=== PATIENT | male | born 1965 | race Caucasian/White ===

== ENCOUNTER 2020-07-29 22:01 | Inpatient (IN) | payer MEDICAID ==
[~2020-07-29] VITALS: Ht 180.3 cm; Wt 99.8 kg
[2020-07-29] MEDS ORDERED: ACETAMINOPHEN 325MG TABLET PO STA (23:31)
[2020-07-29] MEDS ORDERED: CEFTRIAXONE 1 G PREMIX 50 ML IV ONE (23:45)
[2020-07-29] MEDS ORDERED: AZITHROMYCIN 500 MG in DEXT 5% WATER 250 ML IV ONE (23:45)
[2020-07-30 01:03] LABS: HEMATOCRIT. 42.8 % (42.0-52.0); HEMOGLOBIN. 14.4 g/dL (14.0-18.0); MEAN CORPUSCULAR HEMOGLOBIN 30.6 pg (28.0-32.0); MEAN PLATELET VOLUME 9.4 fl (7.4-10.4); RED CELL DISTRIBUTION WIDTH 14.1 % (11.6-14.6)
[2020-07-30 01:08] LABS: CHLORIDE 103 mEq/L (98-107)
[2020-07-30 02:56] LABS: PLATELET ESTIMATE NORMAL
[2020-07-30 02:59] LABS: PLATELET 179 x1000/uL (130-400)
[2020-07-30 03:27] LABS: CLARITY URINE CLOUDY (CLEAR); COLOR URINE DARK YELLOW (YELLOW); KETONES URINE 3+ (NEGATIVE); LEUKOCYTE ESTERASE URINE TRACE (NEGATIVE); NITRITE URINE NEGATIVE (NEGATIVE); OCCULT BLOOD URINE NEGATIVE (NEGATIVE); PROTEIN URINE 3+ (NEGATIVE); SPECIFIC GRAVITY URINE 1.038 (1.005-1.030)
[2020-07-30] MEDS ORDERED: BENZONATATE 100MG CAPSULE PO PRN (09:00)
[2020-07-30] MEDS ORDERED: ONDANSETRON HCL 4MG/2ML INJ IV PRN (09:00)
[2020-07-30] MEDS ORDERED: CEFTRIAXONE 1 G PREMIX 50 ML IV SCH (10:00)
[2020-07-30] MEDS ORDERED: ALBUTEROL 6.7GM HFA INHALER ORI PRN (10:00)
[2020-07-30] MEDS ORDERED: GUAIFENESIN-DM 200MG-20MG/10ML UDC PO PRN (16:00)
[2020-07-30 16:21] LABS: BG BASE EXCESS 4.2 mmol/L (-2.0-2.0); BG CARBOXYHEMOGLOBIN 0.2 % (0.5-1.5); BG DEOXYHEMOGLOBIN 15.2 % (0.0-5.0); BG FRACTION INSPIRED OXYGEN 100; BG METHEMOGLOBIN 0.3 % (0.0-1.5); BG OXYGEN SATURATION 84.7 % (92.0-98.5); BG OXYHEMOGLOBIN 84.3 % (94.0-97.0); BG PCO2 38.9 mmHg (35.0-45.0); BG PH 7.475 (7.350-7.450); BG PO2 43.4 mmHg (75.0-100.0); BG TOTAL HEMOGLOBIN 13.9 g/dL (12.0-18.0); BG VENT MODE MASK - NRB
[2020-07-30] MEDS: ENOXAPARIN 30MG/0.3ML SYR SUBCUT SCH ×2 (21:00→21:12)
[2020-07-30] MEDS: DEXAMETHASONE 10 MG/ML VIAL IV SCH (21:12)
[2020-07-30 22:30] VITALS: BP 122/79
[2020-07-30] MEDS: AZITHROMYCIN 250 MG TABLET PO SCH (23:56)
[2020-07-31] VITALS (7 sets, daily range): BP systolic 109–135; BP diastolic 63–87
[2020-07-31] MEDS ORDERED: AMLO1CAP6 MT (00:15)
[2020-07-31] MEDS ORDERED: ASPI-1497 PO (00:15)
[2020-07-31] MEDS: ACETAMINOPHEN 325MG TABLET PO PRN (00:35)
[2020-07-31 07:20] LABS: HEMATOCRIT. 39.8 % (42.0-52.0); HEMOGLOBIN. 13.5 g/dL (14.0-18.0); MEAN CORPUSCULAR HEMOGLOBIN 30.9 pg (28.0-32.0); MEAN CORPUSCULAR VOLUME 91.3 fL (80.0-94.0); MEAN PLATELET VOLUME 9.4 fl (7.4-10.4); PLATELET 186 x1000/uL (130-400); RED BLOOD CELL COUNT 4.36 mill/uL (4.7-6.1); RED CELL DISTRIBUTION WIDTH 13.8 % (11.6-14.6)
[2020-07-31 07:37] LABS: CHLORIDE 107 mEq/L (98-107)
[2020-07-31] MEDS: DEXAMETHASONE 10 MG/ML VIAL IV SCH (10:18)
[2020-07-31] MEDS: AZITHROMYCIN 250 MG TABLET PO SCH (10:18)
[2020-07-31] MEDS: ENOXAPARIN 30MG/0.3ML SYR SUBCUT SCH ×2 (10:19→20:19)
[2020-07-31] MEDS: CEFTRIAXONE 1,000 MG in DEXTROSE 5% WATER 50 ML IV SCH (11:08)
[2020-07-31 21:02] LABS: PLATELET ESTIMATE NORMAL
[2020-08-01] VITALS (8 sets, daily range): BP systolic 112–137; BP diastolic 66–83
[2020-08-01 07:41] LABS: HEMOGLOBIN. 13.6 g/dL (14.0-18.0); MEAN CORPUSCULAR HEMOGLOBIN 30.9 pg (28.0-32.0); MEAN PLATELET VOLUME 9.3 fl (7.4-10.4); PLATELET 218 x1000/uL (130-400); RED CELL DISTRIBUTION WIDTH 14.3 % (11.6-14.6)
[2020-08-01 07:53] LABS: CHLORIDE 111 mEq/L (98-107)
[2020-08-01] MEDS: DEXAMETHASONE 10 MG/ML VIAL IV SCH (09:21)
[2020-08-01] MEDS: AZITHROMYCIN 250 MG TABLET PO SCH (09:21)
[2020-08-01] MEDS: CEFTRIAXONE 1,000 MG in DEXTROSE 5% WATER 50 ML IV SCH (11:08)
[2020-08-01] MEDS: ENOXAPARIN 30MG/0.3ML SYR SUBCUT SCH ×2 (11:09→20:05)
[2020-08-01] MEDS: SODIUM CHLORIDE 0.45% 1,000 ML IV SCH (18:03)
[2020-08-01 23:24] LABS: PLATELET ESTIMATE NORMAL
[2020-08-02 00:05] VITALS: BP 132/69
[2020-08-02] MEDS: SODIUM CHLORIDE 0.45% 1,000 ML IV SCH ×2 (02:26→17:58)
[2020-08-02 04:00] VITALS: BP 139/88
[2020-08-02 07:21] LABS: HEMATOCRIT. 35.6 % (42.0-52.0); HEMOGLOBIN. 12.1 g/dL (14.0-18.0); MEAN CORPUSCULAR HEMOGLOBIN 30.5 pg (28.0-32.0); MEAN CORPUSCULAR VOLUME 90.2 fL (80.0-94.0); MEAN PLATELET VOLUME 9.1 fl (7.4-10.4); PLATELET 242 x1000/uL (130-400); RED BLOOD CELL COUNT 3.95 mill/uL (4.7-6.1); RED CELL DISTRIBUTION WIDTH 13.9 % (11.6-14.6)
[2020-08-02 07:26] LABS: CHLORIDE 110 mEq/L (98-107)
[2020-08-02 08:00] VITALS: BP 119/72
[2020-08-02] MEDS: DEXAMETHASONE 10 MG/ML VIAL IV SCH (08:21)
[2020-08-02] MEDS: ENOXAPARIN 30MG/0.3ML SYR SUBCUT SCH ×2 (08:21→21:17)
[2020-08-02] MEDS: AZITHROMYCIN 250 MG TABLET PO SCH (08:25)
[2020-08-02] MEDS: CEFTRIAXONE 1,000 MG in DEXTROSE 5% WATER 50 ML IV SCH (11:11)
[2020-08-02 12:00] VITALS: BP 126/64
[2020-08-02 15:20] LABS: PLATELET ESTIMATE NORMAL
[2020-08-02 16:00] VITALS: BP 116/77
[2020-08-02 20:00] VITALS: BP 135/81
[2020-08-03] MEDS: SODIUM CHLORIDE 0.45% 1,000 ML IV SCH ×2 (03:58→21:58)
[2020-08-03 08:00] VITALS: BP 126/73
[2020-08-03] MEDS: ENOXAPARIN 30MG/0.3ML SYR SUBCUT SCH ×2 (08:59→21:58)
[2020-08-03] MEDS: DEXAMETHASONE 10 MG/ML VIAL IV SCH (08:59)
[2020-08-03] MEDS: ACETAMINOPHEN 325MG TABLET PO PRN (09:07)
[2020-08-03] MEDS: CEFTRIAXONE 1,000 MG in DEXTROSE 5% WATER 50 ML IV SCH (10:20)
[2020-08-03 11:51] LABS: BG BASE EXCESS -0.3 mmol/L (-2.0-2.0); BG CARBOXYHEMOGLOBIN 0.8 % (0.5-1.5); BG DEOXYHEMOGLOBIN 3.2 % (0.0-5.0); BG FRACTION INSPIRED OXYGEN 100; BG HCO3 ACT 22.6 mmol/L (22.0-26.0); BG METHEMOGLOBIN 0.2 % (0.0-1.5); BG OXYGEN SATURATION 96.8 % (92.0-98.5); BG OXYHEMOGLOBIN 95.8 % (94.0-97.0); BG PH 7.467 (7.350-7.450); BG PO2 84.2 mmHg (75.0-100.0); BG SAMPLE SITE RIGHT RADIAL; BG TOTAL HEMOGLOBIN 13.8 g/dL (12.0-18.0); BG TOTAL RESPIRATORY RATE 35 b/min; BG VENT MODE MASK - BIPAP
[2020-08-03 12:00] VITALS: BP 123/74
[2020-08-03 16:00] VITALS: BP 136/73
[2020-08-03 20:00] VITALS: BP 129/71
[2020-08-04] VITALS: BP 113/80
[2020-08-04 04:30] VITALS: BP 141/79
[2020-08-04 08:00] VITALS: BP 131/65
[2020-08-04] MEDS: DEXAMETHASONE 10 MG/ML VIAL IV SCH (09:45)
[2020-08-04] MEDS: ENOXAPARIN 30MG/0.3ML SYR SUBCUT SCH ×2 (09:45→21:19)
[2020-08-04] MEDS: SODIUM CHLORIDE 0.45% 1,000 ML IV SCH ×2 (09:46→21:21)
[2020-08-04] MEDS: ACETAMINOPHEN 325MG TABLET PO PRN (10:10)
[2020-08-04] MEDS: CEFTRIAXONE 1,000 MG in DEXTROSE 5% WATER 50 ML IV SCH (11:36)
[2020-08-04 12:00] VITALS: BP 116/69
[2020-08-04] MEDS: FAMOTIDINE 20MG/2ML VIAL IV SCH (15:15)
[2020-08-04 16:00] VITALS: BP 116/65
[2020-08-04 20:33] VITALS: BP 116/61
[2020-08-04 21:13] LABS: CHLORIDE 107 mEq/L (98-107)
[2020-08-05 00:22] VITALS: BP 134/78
[2020-08-05] MEDS: ACETAMINOPHEN 325MG TABLET PO PRN ×2 (00:41→09:43)
[2020-08-05 04:00] VITALS: BP 115/64
[2020-08-05 08:00] VITALS: BP 128/74
[2020-08-05] MEDS: FAMOTIDINE 20MG/2ML VIAL IV SCH (09:43)
[2020-08-05] MEDS: DEXAMETHASONE 10 MG/ML VIAL IV SCH (09:43)
[2020-08-05 12:00] VITALS: BP 122/67
[2020-08-05] MEDS: CEFTRIAXONE 1,000 MG in DEXTROSE 5% WATER 50 ML IV SCH (12:20)
[2020-08-05] MEDS: ENOXAPARIN 30MG/0.3ML SYR SUBCUT SCH ×2 (12:20→20:11)
[2020-08-05] MEDS: SODIUM CHLORIDE 0.45% 1,000 ML IV SCH ×2 (12:20→23:12)
[2020-08-05 16:00] VITALS: BP 133/75
[2020-08-05 18:02] LABS: CLARITY URINE CLEAR (CLEAR); COLOR URINE YELLOW (YELLOW); KETONES URINE TRACE (NEGATIVE); LEUKOCYTE ESTERASE URINE NEGATIVE (NEGATIVE); NITRITE URINE NEGATIVE (NEGATIVE); OCCULT BLOOD URINE NEGATIVE (NEGATIVE); PH URINE 5.5 (4.5-8.0); PROTEIN URINE 1+ (NEGATIVE); SPECIFIC GRAVITY URINE 1.029 (1.005-1.030); UROBILINOGEN URINE 0.2 E.U./dL (0.2-1.0)
[2020-08-05 19:18] LABS: HEMATOCRIT. 40.6 % (42.0-52.0); HEMOGLOBIN. 13.3 g/dL (14.0-18.0); MEAN CORPUSCULAR HEMOGLOBIN 30.3 pg (28.0-32.0); MEAN CORPUSCULAR VOLUME 92.2 fL (80.0-94.0); MEAN PLATELET VOLUME 9.2 fl (7.4-10.4); PLATELET 281 x1000/uL (130-400); RED BLOOD CELL COUNT 4.41 mill/uL (4.7-6.1); RED CELL DISTRIBUTION WIDTH 14.4 % (11.6-14.6)
[2020-08-05 20:00] VITALS: BP 117/61
[2020-08-05 20:40] LABS: PLATELET ESTIMATE NORMAL
[2020-08-06] VITALS (48 sets, daily range): BP systolic 64–190; BP diastolic 24–100
[2020-08-06] MEDS ORDERED: FENTANYL CITRATE/PF 1,000 MCG in SODIUM CHLORIDE 0.9% 80 ML IV PRN (08:30)
[2020-08-06] MEDS ORDERED: LIDOCAINE HCL 1% 20ML VIAL (Pyxis) INJ ONE (09:54)
[2020-08-06] MEDS ORDERED: MIDAZOLAM HCL 100 MG in DEXT 5% WATER 80 ML IV PRN (10:00)
[2020-08-06] MEDS: PROPOFOL 10MG/ML 100ML 100 ML IV PRN ×2 (10:17→17:57)
[2020-08-06] MEDS: MIDAZOLAM HCL 100 MG in DEXT 5% WATER 80 ML IV PRN ×2 (11:08→17:58)
[2020-08-06] MEDS ORDERED: NOREPINEPHRINE 8MG/250ML PMX 250 ML IV PRN (11:30)
[2020-08-06] MEDS: SODIUM CHLORIDE 0.45% 1,000 ML IV SCH ×2 (11:36→21:09)
[2020-08-06] MEDS ORDERED: NOREPINEPHRINE 8 MG in DEXTROSE 5% WATER 250 ML IV PRN (12:00)
[2020-08-06] MEDS: FENTANYL CITRATE 2,500 MCG in SODIUM CHLORIDE 0.9% 200 ML IV PRN (15:48)
[2020-08-06] MEDS: DEXAMETHASONE 10 MG/ML VIAL IV SCH (15:53)
[2020-08-06] MEDS: FAMOTIDINE 20MG/2ML VIAL IV SCH (15:53)
[2020-08-06] MEDS: ENOXAPARIN 30MG/0.3ML SYR SUBCUT SCH ×2 (15:55→20:05)
[2020-08-06 16:37] LABS: BG BASE EXCESS -1.2 mmol/L (-2.0-2.0); BG CARBOXYHEMOGLOBIN 0.5 % (0.5-1.5); BG DEOXYHEMOGLOBIN 36.4 % (0.0-5.0); BG FRACTION INSPIRED OXYGEN 100; BG HCO3 ACT 25.8 mmol/L (22.0-26.0); BG METHEMOGLOBIN 0.2 % (0.0-1.5); BG OXYGEN SATURATION 63.3 % (92.0-98.5); BG OXYHEMOGLOBIN 62.9 % (94.0-97.0); BG PCO2 52.8 mmHg (35.0-45.0); BG PH 7.307 (7.350-7.450); BG PO2 36.6 mmHg (75.0-100.0); BG SAMPLE SITE RIGHT RADIAL; BG TOTAL HEMOGLOBIN 13.5 g/dL (12.0-18.0); BG VENT MODE VENT - AC
[2020-08-06] MEDS: ACETAMINOPHEN 325MG TABLET PO PRN (20:45)
[2020-08-06] MEDS: PHENYLEPHRINE 100 MG in DEXT 5% WATER 240 ML IV PRN (22:36)
[2020-08-07] VITALS (79 sets, daily range): BP systolic 92–149; BP diastolic 45–88
[2020-08-07] MEDS: PROPOFOL 10MG/ML 100ML 100 ML IV PRN ×6 (00:51→23:15)
[2020-08-07] MEDS: FENTANYL CITRATE 2,500 MCG in SODIUM CHLORIDE 0.9% 200 ML IV PRN ×4 (00:51→23:16)
[2020-08-07] MEDS: MIDAZOLAM HCL 100 MG in DEXT 5% WATER 80 ML IV PRN (00:53)
[2020-08-07 06:05] LABS: HEMATOCRIT. 40.9 % (42.0-52.0); MEAN CORPUSCULAR HEMOGLOBIN 29.7 pg (28.0-32.0); MEAN CORPUSCULAR VOLUME 93.8 fL (80.0-94.0); MEAN PLATELET VOLUME 9.2 fl (7.4-10.4); PLATELET 198 x1000/uL (130-400); RED BLOOD CELL COUNT 4.36 mill/uL (4.7-6.1); RED CELL DISTRIBUTION WIDTH 14.9 % (11.6-14.6)
[2020-08-07 06:07] LABS: CHLORIDE 103 mEq/L (98-107)
[2020-08-07 07:51] LABS: C REACTIVE PROTEIN QUANT > 190.0 mg/L (0.0-3.0)
[2020-08-07] MEDS: MIDAZOLAM HCL 100 MG in SODIUM CHLORIDE 0.9% 80 ML IV PRN ×3 (08:51→23:17)
[2020-08-07 08:59] LABS: BG BASE EXCESS -10.6 mmol/L (-2.0-2.0); BG CARBOXYHEMOGLOBIN 0.2 % (0.5-1.5); BG DEOXYHEMOGLOBIN 3.5 % (0.0-5.0); BG FRACTION INSPIRED OXYGEN 100; BG HCO3 ACT 22.3 mmol/L (22.0-26.0); BG METHEMOGLOBIN 0.3 % (0.0-1.5); BG OXYGEN SATURATION 96.5 % (92.0-98.5); BG PCO2 91.3 mmHg (35.0-45.0); BG PH 7.006 (7.350-7.450); BG SAMPLE SITE RIGHT RADIAL; BG TOTAL HEMOGLOBIN 13.3 g/dL (12.0-18.0); BG VENT MODE VENT - AC
[2020-08-07] MEDS: DEXAMETHASONE 10 MG/ML VIAL IV SCH (09:22)
[2020-08-07] MEDS: FAMOTIDINE 20MG/2ML VIAL IV SCH (09:22)
[2020-08-07] MEDS: ENOXAPARIN 30MG/0.3ML SYR SUBCUT SCH (09:22)
[2020-08-07] MEDS: PHENYLEPHRINE 100 MG in DEXT 5% WATER 240 ML IV PRN (09:22)
[2020-08-07] MEDS: SODIUM CHLORIDE 0.45% 1,000 ML IV SCH (09:34)
[2020-08-07] MEDS: INSULIN REGULAR (HUMULIN R) 300UNITS/3ML VIAL IV NR ×2 (09:44→14:45)
[2020-08-07] MEDS ORDERED: DEXTROSE 50% WATER 50ML SYRINGE IV NR ×2 (09:45→14:30)
[2020-08-07] MEDS ORDERED: CALCIUM CHLORIDE 1,000 MG in DEXT 5% WATER 90 ML IV SCH (11:00)
[2020-08-07] MEDS: PIPERACILLIN/TAZOBACTAM 3.375 G in DEXT 5% WATER 100 ML IV SCH ×3 (12:55→23:07)
[2020-08-07] MEDS ORDERED: CALCIUM GLUCONATE 1,000 MG in DEXT 5% WATER 90 ML IV ONE (14:30)
[2020-08-07] MEDS ORDERED: SODIUM POLYSTYRENE SULFONATE 15 G/60 ML BOT PO NR (14:30)
[2020-08-07] MEDS ORDERED: SODIUM BICARBONATE 8.4% 1 MEQ/ML 50ML SYR IV NR (14:30)
[2020-08-07] MEDS ORDERED: INSULIN REGULAR (HUMULIN R) 300UNITS/3ML VIAL IV NR (14:30)
[2020-08-07] MEDS ORDERED: CALCIUM GLUCONATE 1GM PREMIX 50 ML IV NR (15:00)
[2020-08-07 15:25] LABS: BG BASE EXCESS -2.2 mmol/L (-2.0-2.0); BG CARBOXYHEMOGLOBIN 0.4 % (0.5-1.5); BG DEOXYHEMOGLOBIN 11.9 % (0.0-5.0); BG HCO3 ACT 24.9 mmol/L (22.0-26.0); BG METHEMOGLOBIN 0.2 % (0.0-1.5); BG OXYHEMOGLOBIN 87.5 % (94.0-97.0); BG PCO2 55.9 mmHg (35.0-45.0); BG PH 7.266 (7.350-7.450); BG SAMPLE SITE RIGHT RADIAL; BG TOTAL HEMOGLOBIN 8.1 g/dL (12.0-18.0); BG VENT MODE VENT- PRVC
[2020-08-07 15:34] LABS: PLATELET ESTIMATE NORMAL
[2020-08-07] MEDS ORDERED: SODIUM POLYSTYRENE SULFONATE 15 G/60 ML BOT PO SCH (18:00)
[2020-08-07] MEDS ORDERED: IPRATROPIUM/ALBUTEROL 0.5-3(2.5)MG/3ML NEB HHN PRN (19:00)
[2020-08-07 20:16] LABS: BG BASE EXCESS -10.2 mmol/L (-2.0-2.0); BG CARBOXYHEMOGLOBIN 0.3 % (0.5-1.5); BG DEOXYHEMOGLOBIN 1.1 % (0.0-5.0); BG FRACTION INSPIRED OXYGEN 100; BG HCO3 ACT 22.3 mmol/L (22.0-26.0); BG METHEMOGLOBIN 0.6 % (0.0-1.5); BG OXYGEN SATURATION 98.9 % (92.0-98.5); BG PCO2 86.7 mmHg (35.0-45.0); BG PH 7.029 (7.350-7.450); BG PO2 176.4 mmHg (75.0-100.0); BG SAMPLE SITE RIGHT RADIAL; BG TOTAL HEMOGLOBIN 13.7 g/dL (12.0-18.0); BG VENT MODE VENT - AC
[2020-08-07] MEDS ORDERED: PHENYLEPHRINE 200 MG in DEXT 5% WATER 480 ML IV PRN (20:18)
[2020-08-07] MEDS: IPRATROPIUM/ALBUTEROL 0.5-3(2.5)MG/3ML NEB HHN SCH (20:43)
[2020-08-07] MEDS: SODIUM POLYSTYRENE SULFONATE 15 G/60 ML BOT PO SCH (21:14)
[2020-08-08] VITALS (95 sets, daily range): BP systolic 72–153; BP diastolic 43–96
[2020-08-08] MEDS: IPRATROPIUM/ALBUTEROL 0.5-3(2.5)MG/3ML NEB HHN SCH ×6 (00:13→20:43)
[2020-08-08] MEDS: PROPOFOL 10MG/ML 100ML 100 ML IV PRN ×6 (04:14→22:26)
[2020-08-08] MEDS: SODIUM POLYSTYRENE SULFONATE 15 G/60 ML BOT PO SCH ×2 (04:41→11:04)
[2020-08-08] MEDS: SODIUM CHLORIDE 0.45% 1,000 ML IV SCH ×2 (05:39→21:17)
[2020-08-08] MEDS: PIPERACILLIN/TAZOBACTAM 3.375 G in DEXT 5% WATER 100 ML IV SCH ×2 (05:39→12:34)
[2020-08-08 06:02] LABS: HEMATOCRIT. 34.8 % (42.0-52.0); HEMOGLOBIN. 11.3 g/dL (14.0-18.0); MEAN CORPUSCULAR HEMOGLOBIN 30.5 pg (28.0-32.0); MEAN CORPUSCULAR VOLUME 93.9 fL (80.0-94.0); MEAN PLATELET VOLUME 10.2 fl (7.4-10.4); PLATELET 140 x1000/uL (130-400); RED BLOOD CELL COUNT 3.71 mill/uL (4.7-6.1); RED CELL DISTRIBUTION WIDTH 14.5 % (11.6-14.6)
[2020-08-08] MEDS: FENTANYL CITRATE 2,500 MCG in SODIUM CHLORIDE 0.9% 200 ML IV PRN ×3 (06:54→17:52)
[2020-08-08] MEDS: MIDAZOLAM HCL 100 MG in DEXT 5% WATER 80 ML IV PRN ×3 (06:57→20:42)
[2020-08-08] MEDS ORDERED: BISACODYL 10MG SUPP PR SCH (08:45)
[2020-08-08] MEDS ORDERED: ENOXAPARIN 40MG/0.4ML SYR SUBCUT SCH (09:00)
[2020-08-08 09:50] LABS: CHLORIDE 101 mEq/L (98-107)
[2020-08-08 10:11] LABS: INR 1.2; PROTHROMBIN TIME 12.7 sec (9.6-11.0)
[2020-08-08] MEDS ORDERED: DEXTROSE 50% WATER 50ML SYRINGE IV PRN (10:45)
[2020-08-08 10:49] LABS: PHOSPHORUS 9.3 mg/dL (2.5-4.9)
[2020-08-08] MEDS ORDERED: CALCIUM GLUCONATE 1,000 MG in DEXT 5% WATER 90 ML IV SCH (11:00)
[2020-08-08] MEDS ORDERED: SODIUM BICARBONATE 8.4% 1 MEQ/ML 50ML SYR IV SCH (11:00)
[2020-08-08] MEDS ORDERED: INSULIN REGULAR (HUMULIN R) 300UNITS/3ML VIAL IV SCH (11:00)
[2020-08-08] MEDS ORDERED: DEXTROSE 50% WATER 50ML SYRINGE IV SCH (11:00)
[2020-08-08] MEDS: DEXAMETHASONE 10 MG/ML VIAL IV SCH (11:03)
[2020-08-08] MEDS: FAMOTIDINE 20MG/2ML VIAL IV SCH (11:03)
[2020-08-08] MEDS ORDERED: LIDOCAINE HCL 1% 20ML VIAL (Pyxis) INJ ONE (11:23)
[2020-08-08] MEDS: BLOOD SUGAR DIAGNOSTIC STRIP TEST SCH ×3 (11:30→23:16)
[2020-08-08] MEDS ORDERED: CALCIUM GLUCONATE 1GM PREMIX 50 ML IV NR (13:00)
[2020-08-08 13:35] LABS: PLATELET ESTIMATE NORMAL
[2020-08-08] MEDS: INSULIN LISPRO 100 UNITS/ML SUBCUT SCH ×3 (13:45→23:16)
[2020-08-08 15:00] LABS: BG BASE EXCESS -11.4 mmol/L (-2.0-2.0); BG CARBOXYHEMOGLOBIN 0.3 % (0.5-1.5); BG DEOXYHEMOGLOBIN 3.2 % (0.0-5.0); BG FRACTION INSPIRED OXYGEN 100; BG HCO3 ACT 16.2 mmol/L (22.0-26.0); BG METHEMOGLOBIN 0.3 % (0.0-1.5); BG OXYGEN SATURATION 96.8 % (92.0-98.5); BG OXYHEMOGLOBIN 96.2 % (94.0-97.0); BG PCO2 43.2 mmHg (35.0-45.0); BG PH 7.192 (7.350-7.450); BG PO2 100.8 mmHg (75.0-100.0); BG SAMPLE SITE LEFT RADIAL; BG TOTAL HEMOGLOBIN 11.3 g/dL (12.0-18.0); BG TOTAL RESPIRATORY RATE 40 b/min; BG VENT MODE VENT - AC
[2020-08-08] MEDS ORDERED: SODIUM BICARBONATE 8.4% 1 MEQ/ML 50ML SYR IV NR (15:35)
[2020-08-08] MEDS: PIPERACILLIN/TAZOBACTAM 2.25 G in DEXTROSE 5% WATER 50 ML IV SCH ×2 (17:59→23:16)
[2020-08-09] VITALS (91 sets, daily range): BP systolic 77–152; BP diastolic 38–90
[2020-08-09] MEDS: IPRATROPIUM/ALBUTEROL 0.5-3(2.5)MG/3ML NEB HHN SCH ×6 (01:33→20:41)
[2020-08-09] MEDS: FENTANYL CITRATE 2,500 MCG in SODIUM CHLORIDE 0.9% 200 ML IV PRN ×2 (02:04→13:27)
[2020-08-09] MEDS: PIPERACILLIN/TAZOBACTAM 2.25 G in DEXTROSE 5% WATER 50 ML IV SCH ×4 (05:09→23:43)
[2020-08-09] MEDS: INSULIN LISPRO 100 UNITS/ML SUBCUT SCH ×3 (05:09→18:21)
[2020-08-09] MEDS: BLOOD SUGAR DIAGNOSTIC STRIP TEST SCH ×3 (05:09→17:54)
[2020-08-09] MEDS: PROPOFOL 10MG/ML 100ML 100 ML IV PRN (05:11)
[2020-08-09] MEDS: MIDAZOLAM HCL 100 MG in DEXT 5% WATER 80 ML IV PRN ×2 (05:12→16:12)
[2020-08-09 06:12] LABS: CHLORIDE 99 mEq/L (98-107)
[2020-08-09 06:15] LABS: INR 1.1; PARTIAL THROMBOPLASTIN TIME 26.7 sec (23.4-31.0); PROTHROMBIN TIME 11.8 sec (9.6-11.0)
[2020-08-09 06:24] LABS: HEMATOCRIT. 31.4 % (42.0-52.0); HEMOGLOBIN. 10.2 g/dL (14.0-18.0); MEAN CORPUSCULAR HEMOGLOBIN 30.1 pg (28.0-32.0); MEAN CORPUSCULAR VOLUME 93.1 fL (80.0-94.0); MEAN PLATELET VOLUME 9.3 fl (7.4-10.4); PLATELET 204 x1000/uL (130-400); RED BLOOD CELL COUNT 3.38 mill/uL (4.7-6.1); RED CELL DISTRIBUTION WIDTH 14.8 % (11.6-14.6)
[2020-08-09] MEDS ORDERED: LIDOCAINE HCL 1% 20ML VIAL (Pyxis) INJ ONE (08:14)
[2020-08-09] MEDS ORDERED: ENOXAPARIN 30MG/0.3ML SYR SUBCUT SCH (09:00)
[2020-08-09] MEDS: DEXAMETHASONE 10 MG/ML VIAL IV SCH (09:05)
[2020-08-09] MEDS: FAMOTIDINE 20MG/2ML VIAL IV SCH (09:05)
[2020-08-09 10:59] LABS: NUCLEATED RED BLOOD CELLS 2 /100 WBC; PLATELET ESTIMATE NORMAL
[2020-08-09] MEDS: SODIUM CHLORIDE 0.45% 1,000 ML IV SCH (12:22)
[2020-08-09] MEDS ORDERED: ALTEPLASE 2MG/VIAL ITC SCH (13:00)
[2020-08-09] MEDS ORDERED: PHENYLEPHRINE 100 MG in DEXT 5% WATER 250 ML IV PRN (14:00)
[2020-08-09] MEDS ORDERED: SODIUM POLYSTYRENE SULFONATE 15 G/60 ML BOT PO SCH ×2 (14:00)
[2020-08-09 20:32] LABS: BG BASE EXCESS -10.7 mmol/L (-2.0-2.0); BG CARBOXYHEMOGLOBIN 0.3 % (0.5-1.5); BG DEOXYHEMOGLOBIN 6.1 % (0.0-5.0); BG FRACTION INSPIRED OXYGEN 100; BG HCO3 ACT 16.8 mmol/L (22.0-26.0); BG METHEMOGLOBIN 0.2 % (0.0-1.5); BG OXYGEN SATURATION 93.9 % (92.0-98.5); BG OXYHEMOGLOBIN 93.4 % (94.0-97.0); BG PO2 82.4 mmHg (75.0-100.0); BG SAMPLE SITE LEFT RADIAL; BG TOTAL HEMOGLOBIN 10.8 g/dL (12.0-18.0); BG VENT MODE VENT - AC
[2020-08-09] MEDS ORDERED: PROPOFOL 10MG/ML 100ML 100 ML IV PRN (21:45)
[2020-08-10] VITALS (94 sets, daily range): BP systolic 89–153; BP diastolic 46–87
[2020-08-10] MEDS: BLOOD SUGAR DIAGNOSTIC STRIP TEST SCH ×4 (00:22→17:31)
[2020-08-10] MEDS: MIDAZOLAM HCL 100 MG in DEXT 5% WATER 80 ML IV PRN ×4 (00:42→19:53)
[2020-08-10] MEDS: IPRATROPIUM/ALBUTEROL 0.5-3(2.5)MG/3ML NEB HHN SCH ×6 (01:04→22:04)
[2020-08-10] MEDS: FENTANYL CITRATE 2,500 MCG in SODIUM CHLORIDE 0.9% 200 ML IV PRN ×2 (04:11→13:47)
[2020-08-10 04:41] LABS: HEMATOCRIT. 30.7 % (42.0-52.0); MEAN CORPUSCULAR HEMOGLOBIN 29.5 pg (28.0-32.0); MEAN CORPUSCULAR VOLUME 90.3 fL (80.0-94.0); MEAN PLATELET VOLUME 8.6 fl (7.4-10.4); PLATELET 221 x1000/uL (130-400); RED CELL DISTRIBUTION WIDTH 14.5 % (11.6-14.6)
[2020-08-10] MEDS: PIPERACILLIN/TAZOBACTAM 2.25 G in DEXTROSE 5% WATER 50 ML IV SCH ×4 (05:02→23:48)
[2020-08-10] MEDS: INSULIN LISPRO 100 UNITS/ML SUBCUT SCH ×4 (05:13→17:31)
[2020-08-10] MEDS ORDERED: LIDOCAINE HCL 1% 20ML VIAL (Pyxis) INJ ONE (08:46)
[2020-08-10 09:16] LABS: BG BASE EXCESS -5.6 mmol/L (-2.0-2.0); BG CARBOXYHEMOGLOBIN 0.3 % (0.5-1.5); BG DEOXYHEMOGLOBIN 3.1 % (0.0-5.0); BG FRACTION INSPIRED OXYGEN 100; BG HCO3 ACT 21.3 mmol/L (22.0-26.0); BG METHEMOGLOBIN 0.2 % (0.0-1.5); BG OXYGEN SATURATION 96.9 % (92.0-98.5); BG OXYHEMOGLOBIN 96.4 % (94.0-97.0); BG PCO2 48.3 mmHg (35.0-45.0); BG PH 7.263 (7.350-7.450); BG PO2 108.7 mmHg (75.0-100.0); BG VENT MODE VENT - APRV
[2020-08-10] MEDS: FAMOTIDINE 20MG/2ML VIAL IV SCH (09:32)
[2020-08-10] MEDS: ENOXAPARIN 40MG/0.4ML SYR SUBCUT SCH (09:32)
[2020-08-10] MEDS: METOCLOPRAMIDE HCL 10MG/2ML VIAL IV SCH ×2 (13:46→17:49)
[2020-08-10 15:46] LABS: NUCLEATED RED BLOOD CELLS 1 /100 WBC; PLATELET ESTIMATE NORMAL
[2020-08-10] MEDS: ACETAMINOPHEN 650MG/20.3ML UDC PO PRN (21:04)
[2020-08-11] VITALS (94 sets, daily range): BP systolic 71–146; BP diastolic 45–100
[2020-08-11] MEDS: METOCLOPRAMIDE HCL 10MG/2ML VIAL IV SCH ×5 (00:11→23:50)
[2020-08-11] MEDS: BLOOD SUGAR DIAGNOSTIC STRIP TEST SCH ×4 (00:11→18:00)
[2020-08-11] MEDS: MIDAZOLAM HCL 100 MG in DEXT 5% WATER 80 ML IV PRN ×3 (00:23→16:35)
[2020-08-11] MEDS: FENTANYL CITRATE 2,500 MCG in SODIUM CHLORIDE 0.9% 200 ML IV PRN (01:02)
[2020-08-11] MEDS: IPRATROPIUM/ALBUTEROL 0.5-3(2.5)MG/3ML NEB HHN SCH ×6 (01:27→20:30)
[2020-08-11] MEDS: PIPERACILLIN/TAZOBACTAM 2.25 G in DEXTROSE 5% WATER 50 ML IV SCH ×4 (05:08→23:50)
[2020-08-11 05:18] LABS: HEMATOCRIT. 26.9 % (42.0-52.0); HEMOGLOBIN. 8.9 g/dL (14.0-18.0); MEAN CORPUSCULAR VOLUME 90.5 fL (80.0-94.0); MEAN PLATELET VOLUME 8.5 fl (7.4-10.4); PLATELET 204 x1000/uL (130-400); RED BLOOD CELL COUNT 2.98 mill/uL (4.7-6.1); RED CELL DISTRIBUTION WIDTH 14.5 % (11.6-14.6)
[2020-08-11] MEDS: INSULIN LISPRO 100 UNITS/ML SUBCUT SCH ×4 (05:24→18:08)
[2020-08-11] MEDS: ENOXAPARIN 40MG/0.4ML SYR SUBCUT SCH (09:30)
[2020-08-11] MEDS: FAMOTIDINE 20MG/2ML VIAL IV SCH (09:30)
[2020-08-11 10:30] LABS: PLATELET ESTIMATE NORMAL
[2020-08-11] MEDS ORDERED: PROPOFOL 10MG/ML 100ML 100 ML IV PRN (11:15)
[2020-08-11 12:54] LABS: BG BASE EXCESS -12.2 mmol/L (-2.0-2.0); BG CARBOXYHEMOGLOBIN 0.2 % (0.5-1.5); BG DEOXYHEMOGLOBIN 1.5 % (0.0-5.0); BG FRACTION INSPIRED OXYGEN 100; BG HCO3 ACT 16.2 mmol/L (22.0-26.0); BG METHEMOGLOBIN 0.1 % (0.0-1.5); BG OXYGEN SATURATION 98.5 % (92.0-98.5); BG OXYHEMOGLOBIN 98.2 % (94.0-97.0); BG PCO2 47.6 mmHg (35.0-45.0); BG PO2 196.3 mmHg (75.0-100.0); BG SAMPLE SITE LEFT RADIAL; BG TOTAL HEMOGLOBIN 10.4 g/dL (12.0-18.0); BG TOTAL RESPIRATORY RATE 40 b/min; BG VENT MODE VENT - AC
[2020-08-11] MEDS ORDERED: SODIUM BICARBONATE 8.4% 1 MEQ/ML 50ML SYR IV NR (15:30)
[2020-08-11] MEDS: FENTANYL CITRATE/PF 2,500 MCG in SODIUM CHLORIDE 0.9% 200 ML IV PRN (18:19)
[2020-08-11] MEDS ORDERED: NOREPINEPHRINE 8 MG in SODIUM CHLORIDE 0.9% 242 ML IV PRN (23:59)
[2020-08-12] VITALS (96 sets, daily range): BP systolic 93–168; BP diastolic 51–91
[2020-08-12] MEDS: BLOOD SUGAR DIAGNOSTIC STRIP TEST SCH ×5 (00:19→23:08)
[2020-08-12] MEDS: IPRATROPIUM/ALBUTEROL 0.5-3(2.5)MG/3ML NEB HHN SCH ×6 (01:00→20:57)
[2020-08-12] MEDS: FENTANYL CITRATE/PF 2,500 MCG in SODIUM CHLORIDE 0.9% 200 ML IV PRN ×3 (01:43→20:03)
[2020-08-12] MEDS: PIPERACILLIN/TAZOBACTAM 2.25 G in DEXTROSE 5% WATER 50 ML IV SCH (05:15)
[2020-08-12] MEDS: METOCLOPRAMIDE HCL 10MG/2ML VIAL IV SCH ×4 (05:15→23:11)
[2020-08-12 05:32] LABS: HEMATOCRIT. 25.7 % (42.0-52.0); HEMOGLOBIN. 8.5 g/dL (14.0-18.0); MEAN CORPUSCULAR HEMOGLOBIN 29.9 pg (28.0-32.0); MEAN CORPUSCULAR VOLUME 90.7 fL (80.0-94.0); RED BLOOD CELL COUNT 2.84 mill/uL (4.7-6.1); RED CELL DISTRIBUTION WIDTH 14.6 % (11.6-14.6)
[2020-08-12 05:37] LABS: CHLORIDE 101 mEq/L (98-107)
[2020-08-12] MEDS: INSULIN LISPRO 100 UNITS/ML SUBCUT SCH ×5 (06:00→23:16)
[2020-08-12] MEDS: MIDAZOLAM HCL 100 MG in DEXT 5% WATER 80 ML IV PRN (09:18)
[2020-08-12] MEDS: PHENYLEPHRINE 100 MG in SODIUM CHLORIDE 0.9% 240 ML IV SCH (09:19)
[2020-08-12] MEDS: FAMOTIDINE 20MG/2ML VIAL IV SCH (09:20)
[2020-08-12] MEDS: ENOXAPARIN 40MG/0.4ML SYR SUBCUT SCH (09:21)
[2020-08-12 09:48] LABS: BG BASE EXCESS -4.1 mmol/L (-2.0-2.0); BG CARBOXYHEMOGLOBIN 0.3 % (0.5-1.5); BG DEOXYHEMOGLOBIN 1.2 % (0.0-5.0); BG FRACTION INSPIRED OXYGEN 100; BG METHEMOGLOBIN 0.6 % (0.0-1.5); BG OXYGEN SATURATION 98.8 % (92.0-98.5); BG OXYHEMOGLOBIN 97.9 % (94.0-97.0); BG PCO2 38.2 mmHg (35.0-45.0); BG PH 7.357 (7.350-7.450); BG PO2 205.9 mmHg (75.0-100.0); BG SAMPLE SITE RIGHT RADIAL; BG TOTAL HEMOGLOBIN 8.3 g/dL (12.0-18.0); BG VENT MODE VENT - AC
[2020-08-12 14:17] LABS: PLATELET 193 x1000/uL (130-400); PLATELET ESTIMATE NORMAL
[2020-08-12 17:49] LABS: BG BASE EXCESS -7.3 mmol/L (-2.0-2.0); BG CARBOXYHEMOGLOBIN 0.3 % (0.5-1.5); BG DEOXYHEMOGLOBIN 10.7 % (0.0-5.0); BG FRACTION INSPIRED OXYGEN 100; BG METHEMOGLOBIN 0.2 % (0.0-1.5); BG OXYGEN SATURATION 89.2 % (92.0-98.5); BG OXYHEMOGLOBIN 88.8 % (94.0-97.0); BG PCO2 48.7 mmHg (35.0-45.0); BG PH 7.232 (7.350-7.450); BG PO2 70.5 mmHg (75.0-100.0); BG SAMPLE SITE RIGHT RADIAL; BG TOTAL HEMOGLOBIN 10.2 g/dL (12.0-18.0); BG VENT MODE VENT - AC
[2020-08-12] MEDS: PROPOFOL 10MG/ML 100ML 100 ML IV PRN ×3 (18:29→23:46)
[2020-08-12] MEDS: MIDAZOLAM HCL 100 MG in SODIUM CHLORIDE 0.9% 80 ML IV PRN (22:46)
[2020-08-13] VITALS (93 sets, daily range): BP systolic 68–117; BP diastolic 40–62
[2020-08-13] MEDS: FENTANYL CITRATE/PF 2,500 MCG in SODIUM CHLORIDE 0.9% 200 ML IV PRN ×3 (02:17→20:10)
[2020-08-13] MEDS: PROPOFOL 10MG/ML 100ML 100 ML IV PRN ×7 (03:06→23:21)
[2020-08-13] MEDS: IPRATROPIUM/ALBUTEROL 0.5-3(2.5)MG/3ML NEB HHN SCH ×4 (03:38→21:00)
[2020-08-13] MEDS: BLOOD SUGAR DIAGNOSTIC STRIP TEST SCH ×4 (05:21→23:22)
[2020-08-13] MEDS: METOCLOPRAMIDE HCL 10MG/2ML VIAL IV SCH ×4 (05:23→23:19)
[2020-08-13] MEDS: MIDAZOLAM HCL 100 MG in SODIUM CHLORIDE 0.9% 80 ML IV PRN ×2 (05:23→13:25)
[2020-08-13] MEDS: INSULIN LISPRO 100 UNITS/ML SUBCUT SCH ×4 (05:29→23:33)
[2020-08-13 06:28] LABS: HEMATOCRIT. 23.8 % (42.0-52.0); HEMOGLOBIN. 7.9 g/dL (14.0-18.0); MEAN CORPUSCULAR HEMOGLOBIN 30.6 pg (28.0-32.0); MEAN CORPUSCULAR VOLUME 91.7 fL (80.0-94.0); MEAN PLATELET VOLUME 9.1 fl (7.4-10.4); PLATELET 213 x1000/uL (130-400); RED BLOOD CELL COUNT 2.59 mill/uL (4.7-6.1); RED CELL DISTRIBUTION WIDTH 14.8 % (11.6-14.6)
[2020-08-13] MEDS ORDERED: DEXTROSE 50% WATER 50ML SYRINGE IV SCH (08:45)
[2020-08-13] MEDS ORDERED: SORBITOL 70% SOLN 30ML PO SCH (08:45)
[2020-08-13] MEDS ORDERED: INSULIN REGULAR (HUMULIN R) 300UNITS/3ML VIAL IV SCH (08:45)
[2020-08-13] MEDS: ENOXAPARIN 40MG/0.4ML SYR SUBCUT SCH (09:12)
[2020-08-13] MEDS: FAMOTIDINE 20MG/2ML VIAL IV SCH (09:12)
[2020-08-13] MEDS ORDERED: SODIUM POLYSTYRENE SULFONATE 15 G/60 ML BOT PO SCH (10:00)
[2020-08-13 12:39] LABS: BG BASE EXCESS -10.1 mmol/L (-2.0-2.0); BG CARBOXYHEMOGLOBIN 0.3 % (0.5-1.5); BG DEOXYHEMOGLOBIN 1.6 % (0.0-5.0); BG FRACTION INSPIRED OXYGEN 100; BG HCO3 ACT 19.2 mmol/L (22.0-26.0); BG METHEMOGLOBIN 0.7 % (0.0-1.5); BG OXYGEN SATURATION 98.4 % (92.0-98.5); BG OXYHEMOGLOBIN 97.4 % (94.0-97.0); BG PCO2 62.3 mmHg (35.0-45.0); BG PH 7.107 (7.350-7.450); BG PO2 165.5 mmHg (75.0-100.0); BG SAMPLE SITE LEFT RADIAL; BG TOTAL HEMOGLOBIN 8.8 g/dL (12.0-18.0); BG TOTAL RESPIRATORY RATE 40 b/min; BG VENT MODE VENT - AC
[2020-08-13 14:33] LABS: PLATELET ESTIMATE NORMAL
[2020-08-13] MEDS: PHENYLEPHRINE 100 MG in SODIUM CHLORIDE 0.9% 240 ML IV SCH ×2 (14:38→21:43)
[2020-08-13] MEDS: MIDAZOLAM HCL 100 MG in DEXT 5% WATER 80 ML IV PRN (19:22)
[2020-08-13] MEDS ORDERED: FUROSEMIDE 100MG/10ML VIAL IVP NR (20:22)
[2020-08-13] MEDS ORDERED: INSULIN LISPRO 100 UNITS/ML SUBCUT NR (20:23)
[2020-08-13] MEDS ORDERED: DEXTROSE 50% WATER 50ML SYRINGE IV NR (20:24)
[2020-08-13] MEDS ORDERED: SODIUM POLYSTYRENE SULFONATE 15 G/60 ML BOT PO NR (21:30)
[2020-08-14] VITALS (98 sets, daily range): BP systolic 66–173; BP diastolic 31–91
[2020-08-14] MEDS: MIDAZOLAM HCL 100 MG in DEXT 5% WATER 80 ML IV PRN ×3 (02:07→18:21)
[2020-08-14] MEDS: PROPOFOL 10MG/ML 100ML 100 ML IV PRN ×7 (02:48→22:37)
[2020-08-14] MEDS: PHENYLEPHRINE 100 MG in SODIUM CHLORIDE 0.9% 240 ML IV SCH ×3 (03:18→17:28)
[2020-08-14] MEDS: FENTANYL CITRATE/PF 2,500 MCG in SODIUM CHLORIDE 0.9% 200 ML IV PRN ×3 (03:56→20:09)
[2020-08-14] MEDS: IPRATROPIUM/ALBUTEROL 0.5-3(2.5)MG/3ML NEB HHN SCH ×4 (05:05→21:05)
[2020-08-14] MEDS: BLOOD SUGAR DIAGNOSTIC STRIP TEST SCH ×3 (05:22→17:59)
[2020-08-14] MEDS: METOCLOPRAMIDE HCL 10MG/2ML VIAL IV SCH ×3 (05:24→17:59)
[2020-08-14] MEDS: INSULIN LISPRO 100 UNITS/ML SUBCUT SCH ×3 (05:55→18:00)
[2020-08-14 07:02] LABS: HEMATOCRIT. 24.9 % (42.0-52.0); HEMOGLOBIN. 8.2 g/dL (14.0-18.0); MEAN CORPUSCULAR HEMOGLOBIN 30.1 pg (28.0-32.0); MEAN PLATELET VOLUME 8.5 fl (7.4-10.4); PLATELET 221 x1000/uL (130-400); RED BLOOD CELL COUNT 2.73 mill/uL (4.7-6.1)
[2020-08-14 07:09] LABS: CHLORIDE 101 mEq/L (98-107)
[2020-08-14 07:32] LABS: PHOSPHORUS 11.2 mg/dL (2.5-4.9)
[2020-08-14] MEDS: ENOXAPARIN 40MG/0.4ML SYR SUBCUT SCH (09:40)
[2020-08-14] MEDS: FAMOTIDINE 20MG/2ML VIAL IV SCH (09:40)
[2020-08-14 10:05] LABS: BG CARBOXYHEMOGLOBIN 0.3 % (0.5-1.5); BG DEOXYHEMOGLOBIN 1.3 % (0.0-5.0); BG METHEMOGLOBIN 0.7 % (0.0-1.5); BG OXYGEN SATURATION 98.7 % (92.0-98.5); BG OXYHEMOGLOBIN 97.7 % (94.0-97.0); BG PCO2 40.8 mmHg (35.0-45.0); BG PH 7.211 (7.350-7.450); BG PO2 185.3 mmHg (75.0-100.0); BG SAMPLE SITE RIGHT RADIAL; BG TOTAL HEMOGLOBIN 7.8 g/dL (12.0-18.0); BG VENT MODE VENT - AC
[2020-08-14] MEDS: ACETAMINOPHEN 650MG/20.3ML UDC PO PRN (12:42)
[2020-08-14 13:17] LABS: NUCLEATED RED BLOOD CELLS 3 /100 WBC; PLATELET ESTIMATE NORMAL
[2020-08-14] MEDS ORDERED: SODIUM POLYSTYRENE SULFONATE 15 G/60 ML BOT PO SCH (16:00)
[2020-08-14] MEDS: SEVELAMER CARBONATE 800 MG TABLET PO SCH (17:59)
[2020-08-14] MEDS: CALCIUM CARBONATE 500MG TABLET CHEW PO SCH ×2 (17:59→22:37)
[2020-08-14] MEDS ORDERED: NOREPINEPHRINE 64 MG in SODIUM CHLORIDE 0.9% 436 ML IV SCH (23:45)
[2020-08-15] VITALS (96 sets, daily range): BP systolic 90–156; BP diastolic 41–86
[2020-08-15] MEDS: SEVELAMER CARBONATE 800 MG TABLET PO SCH ×5 (00:14→23:29)
[2020-08-15] MEDS: PHENYLEPHRINE 200 MG in SODIUM CHLORIDE 0.9% 480 ML IV SCH (00:46)
[2020-08-15] MEDS ORDERED: NOREPINEPHRINE 32 MG in SODIUM CHLORIDE 0.9% 218 ML IV SCH (01:00)
[2020-08-15] MEDS: MIDAZOLAM HCL 100 MG in DEXT 5% WATER 80 ML IV PRN ×3 (01:03→21:33)
[2020-08-15] MEDS: PROPOFOL 10MG/ML 100ML 100 ML IV PRN ×6 (01:31→21:34)
[2020-08-15] MEDS: FENTANYL CITRATE/PF 2,500 MCG in SODIUM CHLORIDE 0.9% 200 ML IV PRN (02:49)
[2020-08-15] MEDS: IPRATROPIUM/ALBUTEROL 0.5-3(2.5)MG/3ML NEB HHN SCH ×7 (02:53→23:55)
[2020-08-15] MEDS: METOCLOPRAMIDE HCL 10MG/2ML VIAL IV SCH ×5 (06:00→23:29)
[2020-08-15] MEDS: INSULIN LISPRO 100 UNITS/ML SUBCUT SCH ×4 (06:00→18:00)
[2020-08-15] MEDS: BLOOD SUGAR DIAGNOSTIC STRIP TEST SCH ×4 (06:00→18:05)
[2020-08-15 06:14] LABS: CHLORIDE 95 mEq/L (98-107)
[2020-08-15 06:30] LABS: MEAN CORPUSCULAR HEMOGLOBIN 31.5 pg (28.0-32.0); MEAN CORPUSCULAR VOLUME 91.6 fL (80.0-94.0); MEAN PLATELET VOLUME 8.4 fl (7.4-10.4); PLATELET 183 x1000/uL (130-400); RED BLOOD CELL COUNT 2.17 mill/uL (4.7-6.1)
[2020-08-15 06:42] LABS: HEMATOCRIT. 19.8 % (42.0-52.0); HEMOGLOBIN. 6.8 g/dL (14.0-18.0)
[2020-08-15 06:47] LABS: PHOSPHORUS 13.1 mg/dL (2.5-4.9)
[2020-08-15 09:31] LABS: BG CARBOXYHEMOGLOBIN 0.3 % (0.5-1.5); BG DEOXYHEMOGLOBIN 1.5 % (0.0-5.0); BG FRACTION INSPIRED OXYGEN 100; BG HCO3 ACT 19.3 mmol/L (22.0-26.0); BG METHEMOGLOBIN 0.5 % (0.0-1.5); BG OXYGEN SATURATION 98.5 % (92.0-98.5); BG OXYHEMOGLOBIN 97.7 % (94.0-97.0); BG PCO2 42.6 mmHg (35.0-45.0); BG PH 7.275 (7.350-7.450); BG PO2 152.3 mmHg (75.0-100.0); BG SAMPLE SITE LEFT RADIAL; BG TOTAL HEMOGLOBIN 8.1 g/dL (12.0-18.0); BG TOTAL RESPIRATORY RATE 40 b/min; BG VENT MODE VENT - AC
[2020-08-15] MEDS: ENOXAPARIN 40MG/0.4ML SYR SUBCUT SCH (09:45)
[2020-08-15] MEDS: FAMOTIDINE 20MG/2ML VIAL IV SCH (09:46)
[2020-08-15] MEDS: CALCIUM CARBONATE 500MG TABLET CHEW PO SCH ×4 (09:46→21:37)
[2020-08-15] MEDS ORDERED: MEROPENEM 1,000 MG in SODIUM CHLORIDE 0.9% 100 ML IV SCH (10:15)
[2020-08-15 11:32] LABS: HEMATOCRIT 21.4 % (42.0-52.0); HEMOGLOBIN 7.2 g/dL (14.0-18.0); MEAN CORPUSCULAR HEMOGLOBIN 29.9 pg (28.0-32.0); MEAN CORPUSCULAR VOLUME 89.6 fL (80.0-94.0); PLATELET 210 x1000/uL (130-400); RED BLOOD CELL COUNT 2.39 mill/uL (4.7-6.1); RED CELL DISTRIBUTION WIDTH 15.2 % (11.6-14.6)
[2020-08-15] MEDS ORDERED: VANCOMYCIN 1,750 MG in SODIUM CHLORIDE 0.9% 500 ML IV SCH (13:00)
[2020-08-15] MEDS: MEROPENEM 500MG in NORMAL SALINE 50ML IV SCH (13:11)
[2020-08-15 17:31] LABS: NUCLEATED RED BLOOD CELLS 10 /100 WBC; PLATELET ESTIMATE NORMAL
[2020-08-15] MEDS ORDERED: PROPOFOL 10MG/ML 100ML 100 ML IV PRN (18:00)
[2020-08-16] VITALS (80 sets, daily range): BP systolic 76–196; BP diastolic 37–102
[2020-08-16] MEDS: PROPOFOL 10MG/ML 100ML 100 ML IV PRN ×3 (00:51→07:24)
[2020-08-16] MEDS: MIDAZOLAM HCL 100 MG in DEXT 5% WATER 80 ML IV PRN ×2 (05:12→13:14)
[2020-08-16] MEDS: METOCLOPRAMIDE HCL 10MG/2ML VIAL IV SCH ×4 (06:00→23:20)
[2020-08-16] MEDS: INSULIN LISPRO 100 UNITS/ML SUBCUT SCH ×5 (06:00→23:20)
[2020-08-16] MEDS: SEVELAMER CARBONATE 800 MG TABLET PO SCH ×4 (06:00→23:20)
[2020-08-16] MEDS: BLOOD SUGAR DIAGNOSTIC STRIP TEST SCH ×5 (06:51→23:20)
[2020-08-16 07:47] LABS: HEMATOCRIT. 26.7 % (42.0-52.0); HEMOGLOBIN. 8.9 g/dL (14.0-18.0); MEAN CORPUSCULAR HEMOGLOBIN 29.8 pg (28.0-32.0); MEAN CORPUSCULAR VOLUME 89.4 fL (80.0-94.0); MEAN PLATELET VOLUME 7.9 fl (7.4-10.4); PLATELET 247 x1000/uL (130-400); RED BLOOD CELL COUNT 2.99 mill/uL (4.7-6.1)
[2020-08-16] MEDS: IPRATROPIUM/ALBUTEROL 0.5-3(2.5)MG/3ML NEB HHN SCH ×4 (08:10→20:56)
[2020-08-16 08:20] LABS: PHOSPHORUS 7.2 mg/dL (2.5-4.9)
[2020-08-16] MEDS: FAMOTIDINE 20MG/2ML VIAL IV SCH (09:41)
[2020-08-16] MEDS: CALCIUM CARBONATE 500MG TABLET CHEW PO SCH ×4 (09:41→21:03)
[2020-08-16 10:38] LABS: BG BASE EXCESS -1.5 mmol/L (-2.0-2.0); BG CARBOXYHEMOGLOBIN 0.1 % (0.5-1.5); BG DEOXYHEMOGLOBIN 6.6 % (0.0-5.0); BG HCO3 ACT 24.8 mmol/L (22.0-26.0); BG METHEMOGLOBIN 0.3 % (0.0-1.5); BG OXYGEN SATURATION 93.4 % (92.0-98.5); BG PCO2 49.9 mmHg (35.0-45.0); BG PH 7.314 (7.350-7.450); BG SAMPLE SITE RIGHT RADIAL; BG TOTAL HEMOGLOBIN 8.7 g/dL (12.0-18.0); BG VENT MODE VENT - AC
[2020-08-16 11:19] LABS: CHLORIDE 98 mEq/L (98-107)
[2020-08-16] MEDS: MEROPENEM 500MG in NORMAL SALINE 50ML IV SCH (13:13)
[2020-08-16 13:31] LABS: NUCLEATED RED BLOOD CELLS 5 /100 WBC; PLATELET ESTIMATE NORMAL
[2020-08-16] MEDS ORDERED: PROPOFOL 10MG/ML 100ML 100 ML IV PRN (15:30)
[2020-08-16] MEDS ORDERED: FENTANYL CITRATE/PF 2,500 MCG in SODIUM CHLORIDE 0.9% 200 ML IV PRN (15:30)
[2020-08-16] MEDS: ACETAMINOPHEN 325MG TABLET PO PRN (17:33)
[2020-08-16] MEDS ORDERED: VANCOMYCIN 1250MG in DEXTROSE 5% WATER 250ML IV SCH (18:00)
[2020-08-16] MEDS: FENTANYL CITRATE/PF 2,500 MCG in SODIUM CHLORIDE 0.9% 200 ML IV PRN (18:42)
[2020-08-16] MEDS: ACETAMINOPHEN 650MG/20.3ML UDC PO PRN (21:26)
[2020-08-16] MEDS: PHENYLEPHRINE 200 MG in SODIUM CHLORIDE 0.9% 480 ML IV SCH (21:50)
[2020-08-16] MEDS ORDERED: MIDAZOLAM HCL 100 MG in SODIUM CHLORIDE 0.9% 80 ML IV PRN (23:30)
[2020-08-17] VITALS (51 sets, daily range): BP systolic 80–201; BP diastolic 16–105
[2020-08-17 05:04] LABS: MEAN CORPUSCULAR HEMOGLOBIN 29.8 pg (28.0-32.0); MEAN CORPUSCULAR VOLUME 90.3 fL (80.0-94.0); MEAN PLATELET VOLUME 7.7 fl (7.4-10.4); PLATELET 205 x1000/uL (130-400); RED BLOOD CELL COUNT 1.82 mill/uL (4.7-6.1); RED CELL DISTRIBUTION WIDTH 15.2 % (11.6-14.6)
[2020-08-17] MEDS: IPRATROPIUM/ALBUTEROL 0.5-3(2.5)MG/3ML NEB HHN SCH ×3 (05:14→12:48)
[2020-08-17] MEDS: BLOOD SUGAR DIAGNOSTIC STRIP TEST SCH ×2 (05:25→12:00)
[2020-08-17] MEDS: INSULIN LISPRO 100 UNITS/ML SUBCUT SCH ×2 (05:25→12:00)
[2020-08-17 05:27] LABS: HEMATOCRIT. 16.4 % (42.0-52.0); HEMOGLOBIN. 5.4 g/dL (14.0-18.0)
[2020-08-17 05:40] LABS: CHLORIDE 101 mEq/L (98-107)
[2020-08-17 06:02] LABS: PHOSPHORUS 8.8 mg/dL (2.5-4.9)
[2020-08-17] MEDS: METOCLOPRAMIDE HCL 10MG/2ML VIAL IV SCH ×2 (06:33→12:00)
[2020-08-17] MEDS: SEVELAMER CARBONATE 800 MG TABLET PO SCH ×2 (06:33→12:00)
[2020-08-17 09:32] LABS: NUCLEATED RED BLOOD CELLS 19 /100 WBC
[2020-08-17 09:33] LABS: PLATELET ESTIMATE NORMAL
[2020-08-17 09:42] LABS: BG DEOXYHEMOGLOBIN 20.5 % (0.0-5.0); BG FRACTION INSPIRED OXYGEN 100; BG HCO3 ACT 21.4 mmol/L (22.0-26.0); BG METHEMOGLOBIN 0.6 % (0.0-1.5); BG OXYGEN SATURATION 79.2 % (92.0-98.5); BG OXYHEMOGLOBIN 77.9 % (94.0-97.0); BG PCO2 54.2 mmHg (35.0-45.0); BG PH 7.214 (7.350-7.450); BG PO2 54.6 mmHg (75.0-100.0); BG SAMPLE SITE RIGHT RADIAL; BG TOTAL HEMOGLOBIN 6.4 g/dL (12.0-18.0); BG VENT MODE VENT - AC
[2020-08-17] MEDS: CALCIUM CARBONATE 500MG TABLET CHEW PO SCH ×2 (09:49→13:44)
[2020-08-17] MEDS: FAMOTIDINE 20MG/2ML VIAL IV SCH (09:49)
[2020-08-17] MEDS: MEROPENEM 500MG in NORMAL SALINE 50ML IV SCH (12:00)
[2020-08-17] MEDS ORDERED: EPINEPHRINE 0.1MG/ML (1:10,000) 10ML SYR ONE (14:00)
[2020-08-17] MEDS ORDERED: SODIUM BICARBONATE 8.4% 1 MEQ/ML 50ML SYR IV ONE (14:00)
[2020-08-17] MEDS ORDERED: CALCIUM CHLORIDE 1GM/10ML SYR IV ONE (14:00)
[2020-08-17] MEDS ORDERED: DEXTROSE 50% WATER 50ML SYRINGE IV ONE (14:22)
[2020-08-17] MEDS ORDERED: PANTOPRAZOLE SODIUM 40 MG/VIAL IV SCH (21:00)
== END 2020-08-17 16:35 | disposition expired | DRG 720 ==
LOC: ER 22:17 → 7EST 07-30 02:51 → EDBD 07-30 02:51 → ENRESERV 07-30 10:29 → CANRESERV 07-30 10:29 → ENRESERV 07-30 16:55 → MICUSO 08-06 08:20
PROVIDERS: ADMIT Internal Medicine; ATTEND Internal Medicine
PROC: 5A09557 Assistance with Respiratory Ventilation, Greater than 96 Consecutive Hours, Continuous Positive Airway Pressure (ICD-10-PCS; 2020-07-30)
PROC: 30233M1 Transfusion of Nonautologous Plasma Cryoprecipitate into Peripheral Vein, Percutaneous Approach (ICD-10-PCS; 2020-08-01)
PROC: 5A1955Z Respiratory Ventilation, Greater than 96 Consecutive Hours (ICD-10-PCS; principal; 2020-08-06)
PROC: 0B21XEZ Change Endotracheal Airway in Trachea, External Approach (ICD-10-PCS; 2020-08-06)
PROC: 02HV33Z Insertion of Infusion Device into Superior Vena Cava, Percutaneous Approach (ICD-10-PCS; 2020-08-06)
PROC: B548ZZA Ultrasonography of Superior Vena Cava, Guidance (ICD-10-PCS; 2020-08-06)
PROC: 0BH17EZ Insertion of Endotracheal Airway into Trachea, Via Natural or Artificial Opening (ICD-10-PCS; 2020-08-06)
PROC: 06HY33Z Insertion of Infusion Device into Lower Vein, Percutaneous Approach (ICD-10-PCS; 2020-08-08)
PROC: B54BZZA Ultrasonography of Right Lower Extremity Veins, Guidance (ICD-10-PCS; 2020-08-08)
PROC: 5A1D70Z Performance of Urinary Filtration, Intermittent, Less than 6 Hours Per Day (ICD-10-PCS; 2020-08-08)
PROC: 06PYX3Z Removal of Infusion Device from Lower Vein, External Approach (ICD-10-PCS; 2020-08-10)
PROC: 06HY33Z Insertion of Infusion Device into Lower Vein, Percutaneous Approach (ICD-10-PCS; 2020-08-10)
PROC: B54CZZA Ultrasonography of Left Lower Extremity Veins, Guidance (ICD-10-PCS; 2020-08-10)
PROC: 5A1D70Z Performance of Urinary Filtration, Intermittent, Less than 6 Hours Per Day (ICD-10-PCS; 2020-08-13)
PROC: 5A1D70Z Performance of Urinary Filtration, Intermittent, Less than 6 Hours Per Day (ICD-10-PCS; 2020-08-14)
PROC: 5A1D70Z Performance of Urinary Filtration, Intermittent, Less than 6 Hours Per Day (ICD-10-PCS; 2020-08-15)
PROC: 30233N1 Transfusion of Nonautologous Red Blood Cells into Peripheral Vein, Percutaneous Approach (ICD-10-PCS; 2020-08-16)
PROC: 5A1D70Z Performance of Urinary Filtration, Intermittent, Less than 6 Hours Per Day (ICD-10-PCS; 2020-08-16)
PROC: 5A12012 Performance of Cardiac Output, Single, Manual (ICD-10-PCS; 2020-08-17)
PROC: 5A1D70Z Performance of Urinary Filtration, Intermittent, Less than 6 Hours Per Day (ICD-10-PCS; 2020-08-17)
DX: A41.89 Other specified sepsis (principal); U07.1 COVID-19; J96.01 Acute respiratory failure with hypoxia; I10 Essential (primary) hypertension; E66.9 Obesity, unspecified; R65.21 Severe sepsis with septic shock; R74.01 Elevation of levels of liver transaminase levels; J12.82 Pneumonia due to coronavirus disease 2019; D72.810 Lymphocytopenia; E87.5 Hyperkalemia; Z66 Do not resuscitate; Z51.5 Encounter for palliative care; J98.2 Interstitial emphysema; N17.0 Acute kidney failure with tubular necrosis; T82.41XA Breakdown (mechanical) of vascular dialysis catheter, initial encounter; Y71.2 Prosthetic and other implants, materials and accessory cardiovascular devices associated with adverse incidents; E46 Unspecified protein-calorie malnutrition; E87.2 Acidosis; E83.39 Other disorders of phosphorus metabolism; E87.1 Hypo-osmolality and hyponatremia; D64.9 Anemia, unspecified; Z78.1 Physical restraint status; Y92.89 Other specified places as the place of occurrence of the external cause; Z68.30 Body mass index [BMI] 30.0-30.9, adult
CPT/HCPCS: 31500; 36415; 36556; 36600; 71045; 76770; 76937; 80048; 80053; 80202; 81003; 82270; 82330; 82375; 82728; 82805; 82962; 83036; 83605; 83735; 83880; 84100; 84132; 84145; 84478; 84484; 85025; 85027; 85379; 86140; 86850; 86900; 86920; 86927; 87070; 87106; 93005; 94003; 94640; 94660; 96365; 96366; 96367; 99285; A6261; C1725; C1752; C1893; J0456; J0610; J0696; J1100; J1650; J1815; J1940; J2185; J2250; J2370; J2543; J2704; J2765; J2997; J3010; J3370; J3490; J7040; J7050; J7060; P9016; P9017; U0003; A4315